=== PATIENT | male | born 1975 | race African-American/Black ===

== ENCOUNTER 2018-05-11 19:45 | Emergency (ER) | payer SELFPAY ==
--- OUTSIDE RECORDS SUMMARY | 2018-05-11 19:49 | XMS REPORT | Continuity of Care Document ---
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 Driver/Fellow. I have personally reviewed the images as Center DX well as the Resident's interpretation and agree with the findings. DATE: 04/10/2016 10:13 AM CDT Read by: Anibal Blackmon MD Resident: Anibal Blackmon MD Dictated Date/time: 04/10/16 10:49 Electronically Signed by: Jossue Kay MD 04/10/16 17:11 FINAL REPORT INDICATION: post op orif rt femur COMPARISON: CT knee without contrast dated 04/01/2016 at 1335 TECHNIQUE: AP and lateral radiographs of the knee Laterality: Right FINDINGS: Interim realignment and fixation of distal comminuted intracondylar femur fracture, with locking plate spanning the fracture site from mid body of femur, to the edge of the lateral epicondyl e. Also noted are several transcondylar screws fixating the fracture. Extensive comminution of the metadiaphysis remains with small fragment of posterior metadiaphyseal cortex displaced, with overall alignment of the fracture much improved. Moderate lipohemarthrosis noted posterior to patella IMPRESSION: Interim reduction and fixation of distal femur fracture with satisfactory alignment. Minimal residual displaced fragments Knee wo Knee wo EXAM: CT RIGHT KNEE WITHOUT CONTRAST 04/01 - [facility] contrast contrast w/3D /2015 - [facility] w/3D CT CT Center INDICATION: Right knee fracture Read by: James Kitchen MD Dictated Date/time: 04/01/16 15:24 Electronically Signed by: James Kitchen MD 04/01/16 15:30 FINAL REPORT TECHNIQUE: Noncontrast helical CT imaging of the right knee with multiplanar reformats. Additional 3-D volume rendered images were obtained on scanner workstation. DLP: 375 mGy*cm COMPARISON: Right knee CT 03/31/2016. FINDINGS: There is a comminuted bicondylar fracture of the distal femur which extends for a distance of 10.5 cm above the knee joint line. There is a nondisplaced sagittal fracture line dividing the medial and la teral femoral condyles with 4 mm of maximal step-off across the medial trochlea articular surface. The femoral condyles are otherwise intact. Extensive comminution is present throughout the metadiaphysi s with a 4 cm fragment of the posterior metadiaphyseal cortex that is displaced into the medullary cavity. The remainder of the metadiaphyseal bone fragments are mildly displaced. Soft tissue stranding surrounds the distal femur fracture. There is a moderate sized lipohemarthrosis. There is a 7 x 13 mm minimally displaced impaction fracture along the inferomedial margin of the patella (series 3 image 67). The proximal tibia and fibula are intact. IMPRESSION: 1. Unchanged appearance of comminuted bicondylar distal tibia fracture. 2. 7 x 13 mm minimally displaced impaction fracture at the inferomedial margin of the patella. CHEM PANEL BUN 5 mg/dL 7 - 04/01 [facility] /[address] [place] [address] CHEM PANEL Creatinine 0.67 mg/dL 0.50 - 04/01 [facility] Lvl 1.40 /2015 [facility] CHEM PANEL eGFR 141 04/01 Result Comment: The eGFR is calculated using the CKD-EPI formula. In most young, healthy individuals the eGFR will be >90 mL/ min/1.73m2. The eGFR declines with age. An eGFR of 60-89 may be normal in [facility] mL/min/1.7 /2015 some populations, particularly the elderly, for whom the CKD-EPI formula has not been extensively validated. Use of the eGFR is not recommended in the following populations: [address] Individuals with unstable creatinine concentrations, including patients and those with serious co-morbid conditions. Patients with extremes in muscle mass or diet. The data above are obtained from the National Kidney Disease Education Program (NKDEP) which additionally recommends that when the eGFR is used in patients with extremes of body mass index for purposes of drug dosing, the eGFR should be multiplied by the estimated BMI. CHEM PANEL Calcium Lvl 9.0 mg/dL 8.5 - 10.5 04/01 [facility] CHEM PANEL Chloride Lvl 107 meq/L 95 - 109 04/01 [facility] CHEM PANEL CO2 24 meq/L 24 - 32 04/01 [facility] CHEM PANEL AGAP 13.5 meq/L 10.0 - 04/01 20.0 [facility] CHEM PANEL Sodium Lvl 141 meq/L 135 - 145 04/01 [facility] CHEM PANEL Potassium Lvl 3.5 meq/L 3.5 - 5.1 04/01 2015 [facility] CHEM PANEL Glucose Lvl 99 mg/dL 70 - 99 04/01 2015 [facility] CHEM PANEL Magnesium Lvl 2.1 mg/dL 1.8 - 2.4 04/01 [facility] CHEM PANEL Phosphorus 3.2 mg/dL 2.5 - 4.5 04/01 [facility] HEMATOLOGY RBC 4.90 M/CMM 4.70 - 04/01 6.10 [facility] HEMATOLOGY WBC 10.9 K/CMM 3.7 - 10.4 04/01 [facility] HEMATOLOGY Hgb 13.3 g/dL 14.0 - 04/01 18.0 [facility] HEMATOLOGY Hct 40.2 % 42.0 - 04/01 54.0 [facility] HEMATOLOGY MCV 82.1 fL 80.0 - 04/01 94.0 [facility] HEMATOLOGY MCH 27.1 pg 27.0 - 04/01 31.0 [facility] HEMATOLOGY MCHC 33.1 g/dL 32.0 - 04/01 36.0 [facility] HEMATOLOGY Platelet 221 K/CMM 133 - 450 04/01 [facility] HEMATOLOGY RDW 15.5 % 11.5 - 04/01 14.5 [facility] HEMATOLOGY MPV 8.3 fL 7.4 - 10.4 04/01 2015 [facility] HEMATOLOGY Lymphocytes # 1.6 K/CMM 1.0 - 5.5 04/01 [facility] HEMATOLOGY Basophils 0.2 % 0.0 - 1.0 04/01 [facility] HEMATOLOGY Segs-Bands # 8.4 K/CMM 1.5 - 8.1 04/01 [facility] HEMATOLOGY Monocytes # 0.9 K/CMM 0.0 - 0.8 04/01 [facility] HEMATOLOGY Eosinophils # 0.1 K/CMM 0.0 - 0.5 04/01 2015 [facility] HEMATOLOGY Lymphocytes 14.5 % 20.0 - 04/01 [place] 40.0 [facility] HEMATOLOGY Monocytes 7.8 % 2.0 - 12.0 04/01 [facility] HEMATOLOGY Eosinophils 0.5 % 0.0 - 4.0 04/01 [facility] HEMATOLOGY Segs 77.0 % 45.0 - 04/01 [facility] 75.0 [facility] DRUG SCREEN UDS Note See Note 03/31 [facility] (03/31/16 4:05 PM) Center DRUG SCREEN U Phencyc Scr Negative Negative 03/31 [facility] *NA* Center (03/31/16 4:05 PM) DRUG SCREEN U Opiate Scr Positive Negative 03/31 [facility] *ABN* Center (03/31/16 4:05 PM) DRUG SCREEN U Cannab Scr Negative Negative 03/31 [facility] *NA* Center (03/31/16 4:05 PM) DRUG SCREEN U Benzodia Negative Negative 03/31 [facility] *NA* Center (03/31/16 4:05 PM) DRUG SCREEN U Cocaine Scr Negative Negative 03/31 [facility] *NA* Center (03/31/16 4:05 PM) DRUG SCREEN U Cheryl Scr Negative Negative 03/31 [facility] *NA* Center (03/31/16 4:05 PM) DRUG SCREEN U Amph Scr Negative Negative 03/31 [facility] *NA* Center (03/31/16 4:05 PM) URINE AND UA Bacteria None Seen None Seen 03/31 [facility] (03/31/16 4:05 PM) Center URINE AND UA RBC 21-50 /HPF 0 - 2 03/31 [facility] STOOL [facility] URINE AND UA WBC 0-2 /HPF None Seen 03/31 [facility] STOOL /HPF /2015 [facility] URINE AND UA Sq Epi Rare /LPF Few /LPF 03/31 [facility] URINE AND UA Mucus None Seen None Seen 03/31 [facility] (03/31/16 4:05 PM) [place] URINE AND UA Spec Grav 1.010 <=1.030 03/31 [facility] URINE AND UA pH 6.5 5.0 - 8.0 03/31 [facility]2015 [facility] URINE AND UA Turbidity Clear Clear 03/31 [facility] (03/31/16 4:05 PM) [place] URINE AND UA Color Yellow Yellow 03/31 [facility] *NA* [place] (03/31/16 4:05 PM) URINE AND UA 0.2 EU/dL 0.1 - 1.0 03/31 [facility] Urobilinogen /2015 [facility] URINE AND UA Nitrite Negative Negative 03/31 [facility] (03/31/16 4:05 PM) [place] URINE AND UA Blood Large Negative 03/31 [facility] *ABN* [place] (03/31/16 4:05 PM) URINE AND UA Ketones Negative Negative 03/31 [facility] *NA* [place] (03/31/16 4:05 PM) URINE AND UA Glucose Negative Negative 03/31 [facility] (03/31/16 4:05 PM) [place] URINE AND UA Bili Negative Negative 03/31 [facility] *NA* [place] (03/31/16 4:05 PM) URINE AND UA Protein Trace Negative 03/31 [facility] *ABN* [place] (03/31/16 4:05 PM) URINE AND UA Leuk Est Negative Negative 03/31 [facility] (03/31/16 4:05 PM) [place] Tibia Tibia fibula EXAM: XR LEFT TIBIA 2 VIEWS 03/31 - [facility] fibula series DX /2015 - Medical series DX This report was dictated by a Sulky Driver/Fellow. I have personally reviewed the images as Center well as the Resident's interpretation and agree with the findings. DATE: 03/31/20162038 hours Read by: José Luis Damon MD Resident: José Luis Damon MD Dictated Date/time: 03/31/16 20:51 Electronically Signed by: Flo Syed MD 03/31/16 22:25 FINAL REPORT INDICATION: Leg pain post trauma COMPARISON: None available TECHNIQUE: AP and lateral radiographs of the left tibia DISCUSSION: No acute fracture or malalignment is identified. No soft tissue abnormality is identified. IMPRESSION: No acute abnormality. Forearm 2 Forearm 2 EXAM: XR RIGHT FOREARM 2 VIEWS 03/31 - [facility] views DX views - [facility] This report was dictated by a Sulky Driver/Fellow. I have personally reviewed the images as Center well as the Resident's interpretation and agree with the findings. DATE: 03/31/2016 at 2044 hours Read by: José Luis Damon MD Resident: José Luis Damon MD Dictated Date/time: 03/31/16 20:47 Electronically Signed by: Flo Syed MD 03/31/16 21:06 FINAL REPORT INDICATION: Pain Post Trauma COMPARISON: Right wrist radiograph acquired earlier the same day TECHNIQUE: AP and lateral radiographs of the right forearm DISCUSSION: No acute fracture or malalignment is identified. There is a remote, healed midshaft fracture of the ulna with normal alignment. There is mild soft tissue swelling of the forearm. IMPRESSION: Soft tissue swelling without acute bony abnormality. Healed ulna fracture. BLOOD BANK ABO/Rh A POS 03/31 [facility] RESULTS /2015 [facility] BLOOD BANK Antibody Scrn Negative 03/31 [facility] RESULTS /2015 Medical (03/31/16 11:30 AM) [place] CHEM PANEL Total Protein 7.8 g/dL 6.4 - 8.4 03/31 /2015 [facility] CHEM PANEL Albumin Lvl 3.5 g/dL 3.5 - 5.0 03/31 2015 [facility] CHEM PANEL AST 40 unit/L 0 - 37 03/31 /2015 [facility] CHEM PANEL ALT 36 unit/L 0 - 65 03/31 /2015 [facility] CHEM PANEL Bili Total 0.6 mg/dL 0.2 - 1.3 03/31 /2015 [facility] CHEM PANEL Alk Phos 90 unit/L 39 - 136 03/31 /2015 [facility] CHEM PANEL eGFR 102 03/31 Result Comment: The eGFR is calculated using the CKD-EPI formula. In most young, healthy individuals the eGFR will be >90 mL/ min/1.73m2. The eGFR declines with age. An eGFR of 60-89 may be normal in [facility] mL/min/1.7 some populations, particularly the elderly, for whom the CKD-EPI formula has not been extensively validated. Use of the eGFR is not recommended in the following populations: [address] Individuals with unstable creatinine concentrations, including patients and those with serious co-morbid conditions. Patients with extremes in muscle mass or diet. The data above are obtained from the National Kidney Disease Education Program (NKDEP) which additionally recommends that when the eGFR is used in patients with extremes of body mass index for purposes of drug dosing, the eGFR should be multiplied by the estimated BMI. CHEM PANEL CO2 21 meq/L 24 - 32 03/[address] CHEM PANEL Potassium Lvl 3.5 meq/L 3.5 - 5.1 03/[address] CHEM PANEL Chloride Lvl 105 meq/L 95 - 109 03/[address] CHEM PANEL Calcium Lvl 9.0 mg/dL 8.5 - 10.5 03/[address] CHEM PANEL Creatinine 1.06 mg/dL 0.50 - 03/31 [facility] Lvl 1.40 [facility] CHEM PANEL Sodium Lvl 138 meq/L 135 - 145 03/[address] CHEM PANEL Glucose Lvl 129 mg/dL 70 - 99 03/[address] CHEM PANEL BUN 10 mg/dL 7 - 22 03/[address] CHEM PANEL A/G Ratio 0.8 0.7 - 1.6 03/[address] CHEM PANEL Globulin 4.3 g/dL 2.0 - 4.0 03/[address] CHEM PANEL B/C Ratio 9 6 - 25 03/[address] CHEM PANEL AGAP 15.5 meq/L 10.0 - 03/31 [facility] 20.0 [facility] CHEM PANEL Lactic Acid 1.4 mMol/L 0.5 - 2.2 03/31 [facility] HEMATOLOGY Eosinophils # 0.2 K/CMM 0.0 - 0.5 03/[address] HEMATOLOGY Basophils # 0.1 K/CMM 0.0 - 0.2 03/[address] HEMATOLOGY Segs-Bands # 6.6 K/CMM 1.5 - 8.1 03/[address] Center HEMATOLOGY Monocytes # 0.8 K/CMM 0.0 - 0.8 03/31 [facility] HEMATOLOGY Lymphocytes # 3.1 K/CMM 1.0 - 5.5 03/31 [facility] HEMATOLOGY Basophils 0.7 % 0.0 - 1.0 03/31 [facility] HEMATOLOGY Eosinophils 1.9 % 0.0 - 4.0 03/31 [facility] HEMATOLOGY Segs 61.6 % 45.0 - 03/31 [place] 75.0 [facility] HEMATOLOGY Monocytes 7.3 % 2.0 - 12.0 03/31 [facility] HEMATOLOGY Lymphocytes 28.5 % 20.0 - 03/31 40.0 [facility] HEMATOLOGY Platelet 260 K/CMM 133 - 450 03/31 [facility] HEMATOLOGY RDW 15.3 % 11.5 - 03/31 14.5 [facility] HEMATOLOGY MCHC 32.7 g/dL 32.0 - 03/31 36.0 [facility] HEMATOLOGY MPV 8.0 fL 7.4 - 10.4 03/31 [facility] HEMATOLOGY MCH 27.2 pg 27.0 - 03/31 31.0 [facility] HEMATOLOGY MCV 83.1 fL 80.0 - 03/31 94.0 [facility] HEMATOLOGY Hgb 13.9 g/dL 14.0 - 03/31 18.0 [facility] HEMATOLOGY RBC 5.11 M/CMM 4.70 - 03/31 6.10 [facility] HEMATOLOGY Hct 42.4 % 42.0 - 03/31 54.0 [facility] HEMATOLOGY WBC 10.7 K/CMM 3.7 - 10.4 03/31 [facility] HEMATOLOGY R-time Rapid 0.6 min 0.4 - 0.7 03/31 [facility] HEMATOLOGY Angle Rapid 83 degrees 64 - 80 03/31 [facility] HEMATOLOGY ACT (TEG) 105 s 86 - 118 03/31 [facility] HEMATOLOGY [place] 0.5 min 03/31 [facility] HEMATOLOGY K-time Rapid 0.8 min 0.6 - 2.3 03/31 [facility] HEMATOLOGY Estimated % 0.8 % 0.0 - 7.5 03/31 [facility] Lysis Rapid [facility] HEMATOLOGY Max Amplitude 80 mm 52 - 71 03/31 [facility] HEMATOLOGY G-value Rapid 20.5 K 5.0 - 11.6 03/31 [facility] d/sc [facility] Knee wo Knee wo EXAM: CT RIGHT KNEE WITHOUT CONTRAST 03/31 - [facility] contrast CT contrast CT /2015 - Medical This report was dictated by a Sulky Driver/Fellow. I have personally reviewed the images as Center well as the Resident's interpretation and agree with the findings. DATE: 03/31/2016 1436 PM CDT Read by: Debi Dalal MD Resident: Debi Dalal MD Dictated Date/time: 03/31/16 15:13 Electronically Signed by: Flo Syed MD 03/31/16 17:46 FINAL REPORT INDICATION: Fracture COMPARISON: Left knee radiograph dated 03/31/2016. TECHNIQUE: Volumetric CT acquisition of the left knee without contrast. Axial, sagittal and coronal reconstructions. IV contrast: None. DLP: 326.0 mGy-cm FINDINGS: There is a comminuted Y-shaped intra-articular fracture of the right femoral distal diaphysis with minimal posterior displacement of the lateral fragment. The fracture line exits the intercondylar notch . Separately, there is a comminuted fracture of the lateral condyle. There are multiple comminuted bone fragments in the fracture cleft. Tiny bone fragments are identified adjacent to the intercondylar fossa. No bone fragments are present in the medial or lateral femorotibial or patellofemoral joint spaces. There is no fracture of the patella, tibia, or fibula. There is mild soft tissue swelling. No subcutaneous emphysema is identified. A small to moderate lipohemarthrosis is present. No radiopaque foreign body is identified. IMPRESSION: IMPRESSION: 1. Comminuted, impacted Y-shaped intra-articular fracture of the right femoral distal diaphysis. 2. Lipohemarthrosis. Wrist Wrist ADDENDUM: 03/31 - [facility] complete DX complete DX - Medical Following is a correction to the previous report titles. Center The right wrist and left hand were imaged. Read by: Dennys Olson MD Dictated Date/time: 04/01/16 13:51 The right hand is reported separately in previous exam report on 2015 at 1136 hours. Electronically Signed by: Dennys Olson MD 04/01/16 14:07 FINAL REPORT Corrected reports are as follows: - - EXAM: XR RIGHT WRIST 4VIEWS Read by: Dennys Olson MD Dictated Date/time: 03/31/16 14:21 Electronically Signed by: Dennys Olson MD 03/31/16 14:27 FINAL REPORT DATE: 03/31/2016 1338 hours CDT INDICATION: Pain Post Trauma COMPARISON: None available TECHNIQUE: PA, lateral, navicular, and oblique radiographs of the right wrist FINDINGS: No fracture, periosteal reaction, or erosions identified. Cortical thickening at the ulna mid diaphysis is partially visualized presumably sequela of remote trauma. Suggest obtaining right forearm series for complete assessment. Joint alignment is normal. Soft tissues are unremarkable. IMPRESSION: No acute fractures of the right wrist identified. Partially visualized cortical thickening at the right ulna mid diaphysis compatible with sequela of remote trauma. EXAM: XR LEFT HAND 3 VIEWS DATE: 03/31/2016 1338 hours CDT INDICATION: Pain Post Trauma COMPARISON: None available TECHNIQUE: PA, lateral and oblique radiographs of the left hand FINDINGS: No fracture, periosteal reaction, or erosions identified. Chronic healed fracture deformity of the 5th metacarpal noted. Joint alignment is normal. Focal soft tissue swelling adjacent to the base of the 1st metacarpal on the radial side of the wrist measuring 2.3 x 1.4 cm noted suggesting presence of a ganglion cyst. IMPRESSION: No acute injuries identified. Chronic healed fracture of the 5th left metacarpal. Focal soft tissue swelling on the radial side of the left wrist at the level of the carpal bones suggesting presence of a ganglion cyst. EXAM: XR RIGHT HAND 3 VIEWS EXAM: XR RIGHT WRIST 3 VIEWS DATE: 03/31/2016 1:36 PM CDT INDICATION: Pain Post Trauma COMPARISON: None available TECHNIQUE: PA, lateral and oblique radiographs of the right wrist PA, lateral and oblique radiographs of the right hand FINDINGS: No fracture, periosteal reaction, or erosions identified. Cortical thickening at the ulna mid diaphysis is partially visualized presumably sequela of remote trauma. Suggest obtaining right forearm series for complete assessment. Joint alignment is normal. Soft tissues are unremarkable. IMPRESSION: No acute fractures identified. Partially visualized cortical thickening at the ulna mid diaphysis presumably sequela of remote trauma. Consider obtaining right forearm series for assessment if symptomatic. Hand 3 Hand 3 views ADDENDUM: 03/31 - [facility] views DX - Medical Following is a correction to the previous report titles. Center The right wrist and left hand were imaged. Read by: Dennys Olson MD Dictated Date/time: 04/01/16 13:51 The right hand is reported separately in previous exam report on 2015 at 1136 hours. Electronically Signed by: Dennys Olson MD 04/01/16 14:07 FINAL REPORT Corrected reports are as follows: - - EXAM: XR RIGHT WRIST 4VIEWS Read by: Dennys Olson MD Dictated Date/time: 03/31/16 14:21 Electronically Signed by: Dennys Olson MD 03/31/16 14:27 FINAL REPORT DATE: 03/31/2016 1338 hours CDT INDICATION: Pain Post Trauma COMPARISON: None available TECHNIQUE: PA, lateral, navicular, and oblique radiographs of the right wrist FINDINGS: No fracture, periosteal reaction, or erosions identified. Cortical thickening at the ulna mid diaphysis is partially visualized presumably sequela of remote trauma. Suggest obtaining right forearm series for complete assessment. Joint alignment is normal. Soft tissues are unremarkable. IMPRESSION: No acute fractures of the right wrist identified. Partially visualized cortical thickening at the right ulna mid diaphysis compatible with sequela of remote trauma. EXAM: XR LEFT HAND 3 VIEWS DATE: 03/31/2016 1338 hours CDT INDICATION: Pain Post Trauma COMPARISON: None available TECHNIQUE: PA, lateral and oblique radiographs of the left hand FINDINGS: No fracture, periosteal reaction, or erosions identified. Chronic healed fracture deformity of the 5th metacarpal noted. Joint alignment is normal. Focal soft tissue swelling adjacent to the base of the 1st metacarpal on the radial side of the wrist measuring 2.3 x 1.4 cm noted suggesting presence of a ganglion cyst. IMPRESSION: No acute injuries identified. Chronic healed fracture of the 5th left metacarpal. Focal soft tissue swelling on the radial side of the left wrist at the level of the carpal bones suggesting presence of a ganglion cyst. EXAM: XR RIGHT HAND 3 VIEWS EXAM: XR RIGHT WRIST 3 VIEWS DATE: 03/31/2016 1:36 PM CDT INDICATION: Pain Post Trauma COMPARISON: None available TECHNIQUE: PA, lateral and oblique radiographs of the right wrist PA, lateral and oblique radiographs of the right hand FINDINGS: No fracture, periosteal reaction, or erosions identified. Cortical thickening at the ulna mid diaphysis is partially visualized presumably sequela of remote trauma. Suggest obtaining right forearm series for complete assessment. Joint alignment is normal. Soft tissues are unremarkable. IMPRESSION: No acute fractures identified. Partially visualized cortical thickening at the ulna mid diaphysis presumably sequela of remote trauma. Consider obtaining right forearm series for assessment if symptomatic. Brain wo Brain wo EXAM: CT BRAIN WITHOUT CONTRAST 03/31 [facility] contrast CT contrast CT /2016 [facility] Center DATE: 03/31/2016 Read by: Sanjana Carnes Dictated Date/time: 03/31/16 12:32 Electronically Signed by: Sanjana Carnes 03/31/16 12:33 FINAL REPORT INDICATION: Pain Post Trauma COMPARISON:None available TECHNIQUE: Routine axial CT images of the brain were obtained. DLP: 1742 mGy-cm FINDINGS: Non-contrast images of the head demonstrate no edema, hemorrhage, mass lesion or other acute intracranial abnormality. The brain has normal attenuation and chang-white matter distinction. The ventricles are normal. The basal cisterns and sulci are normal in size. There is no chronic abnormality. The paranasal sinuses, orbits and mastoids are unremarkable. IMPRESSION: Normal CT of the brain without contrast. Spine Spine EXAM: CT CERVICAL SPINE WITHOUT CONTRAST 03/31 [facility] cervical wo cervical wo /2015 - [facility] contrast CT contrast CT Center DATE: 03/31/2016 11:31 AM CDT Read by: Rory Carrasco MD Dictated Date/time: 03/31/16 12:52 Electronically Signed by: Rory Carrasco MD 03/31/16 12:53 FINAL REPORT INDICATION: Neck pain following trauma COMPARISON: None TECHNIQUE: Volumetric CT acquisition of the cervical spine without contrast. Axial, sagittal and coronal reconstructions. IV contrast: None. DLP: 495 mGy-cm FINDINGS: The spine is imaged from the skull base to the level of T1. No acute fracture or malalignment is identified. No soft tissue abnormality is identified. IMPRESSION: No acute abnormality of the cervical spine. Chest/Abdom Chest/Abdomen EXAM: CT CHEST WITH CONTRAST 06/28 [facility] en/Pelvis w /Pelvis w IV /2015 - Medical IV contrast contrast CT EXAM: CT ABDOMEN AND PELVIS WITH CONTRAST Center CT Read by: Rory Carrasco MD Dictated Date/time: 03/31/16 12:50 DATE: 03/31/2016 11:31 AM CDT Electronically Signed by: Rory Carrasco MD 03/31/16 12:51 FINAL REPORT INDICATION: Pain Post Trauma COMPARISON: None. TECHNIQUE: Volumetric CT acquisition of the chest, abdomen and pelvis following intravenous administration of contrast. Delayed imaging was then performed through the abdomen and pelvis, using a radiati on reduction technique. Axial, coronal and sagittal reformats, and MIP images of the aorta. IV contrast: 99 mL of Visipaque 320 Oral contrast: None. DLP: 3483 mGy-cm FINDINGS: Lines and Tubes: None. Lower Neck: Visible portions unremarkable. Thoracic Aorta and Mediastinum: No mediastinal hematoma or thoracic aortic injury. Lungs and Pleura: Lungs are clear. No contusions. No pleural fluid or pneumothorax. Hepatobiliary: Normal. Gallbladder: No injury. Spleen: Normal. Pancreas: Normal. Adrenals: Normal. Kidneys: Normal. Ureters and Bladder: No injury. Reproductive Organs: No injury. Gastrointestinal Tract: No injury. Peritoneum and Retroperitoneum: No fluid collections or free air. Abdominal/Pelvic Vasculature: No vascular injury. Lymphadenopathy: None. Spine/Bones: No acute abnormality of the spine. No other bony injury. Soft Tissues: Seatbelt contusion in the subcutaneous fat of the lower abdominal wall at the level of the iliac crests more pronounced on the left than on the right side. IMPRESSION: 1. Seatbelt contusion over the lower anterior abdominal wall. 2. No other acute thoracic, abdominal, or pelvic injury. RECOMMENDATIONS: None. Ankle 3 Ankle 3 views EXAM: XR RIGHT HIP 2 VIEWS AND AP PELVIS 03/31 [facility] views DX DX /2015 - Medical EXAM: XR RIGHT FEMUR 2 VIEWS Center EXAM: XR RIGHT KNEE 3 VIEWS Read by: Rory Carrasco MD Dictated Date/time: 03/31/16 12:55 EXAM: XR RIGHT TIBIA-FIBULA 2 VIEWS Electronically Signed by: Rory Carrasco MD 03/31/16 12:59 FINAL REPORT EXAM: XR RIGHT ANKLE 3 VIEWS EXAM: XR RIGHT FOOT 3 VIEWS DATE: 03/31/2016 11:32 AM CDT INDICATION: Pain and swelling COMPARISON: None TECHNIQUE: AP and lateral views of the right femur, AP, lateral and oblique views of the right knee, AP and lateral views of the right tibia-fibula , AP, lateral and oblique radiographs of the right ankle. FINDINGS: Femur: Comminuted distal metadiaphyseal fracture of the right femur with a sagittal fracture line extending into the intercondylar notch of the distal femur. Each condyle is a separate fragment. Knee: Distal femur fracture as described above. Patella is intact. No excessive knee joint fluid is identified. Tibia-fibula: No acute fracture or malalignment is identified. Ankle: No acute fracture or malalignment is identified. The ankle mortise is congruent. Soft tissues: Soft tissue swelling is seen in the prepatellar region. IMPRESSION: Comminuted intra-articular right distal femur fracture Femur Femur series EXAM: XR RIGHT HIP 2 VIEWS AND AP PELVIS 03/31 - [place] series DX DX - Medical EXAM: XR RIGHT FEMUR 2 VIEWS Center EXAM: XR RIGHT KNEE 3 VIEWS Read by: Rory Carrasco MD Dictated Date/time: 03/31/16 12:55 EXAM: XR RIGHT TIBIA-FIBULA 2 VIEWS Electronically Signed by: Rory Carrasco MD 03/31/16 12:59 FINAL REPORT EXAM: XR RIGHT ANKLE 3 VIEWS EXAM: XR RIGHT FOOT 3 VIEWS DATE: 03/31/2016 11:32 AM CDT INDICATION: Pain and swelling COMPARISON: None TECHNIQUE: AP and lateral views of the right femur, AP, lateral and oblique views of the right knee, AP and lateral views of the right tibia-fibula , AP, lateral and oblique radiographs of the right ankle. FINDINGS: Femur: Comminuted distal metadiaphyseal fracture of the right femur with a sagittal fracture line extending into the intercondylar notch of the distal femur. Each condyle is a separate fragment. Knee: Distal femur fracture as described above. Patella is intact. No excessive knee joint fluid is identified. Tibia-fibula: No acute fracture or malalignment is identified. Ankle: No acute fracture or malalignment is identified. The ankle mortise is congruent. Soft tissues: Soft tissue swelling is seen in the prepatellar region. IMPRESSION: Comminuted intra-articular right distal femur fracture Hand 3 Hand 3 views EXAM: XR RIGHT HAND 3 VIEWS 03/31 - [place] views DX DX - Medical This report was dictated by a Sulky Driver/Fellow. I have personally reviewed the images as Center well as the Resident's interpretation and agree with the findings. DATE: 03/31/2016 1136 hours Read by: Debi Dalal MD Resident: Debi Dalal MD Dictated Date/time: 03/31/16 13:02 Electronically Signed by: Rory Carrasco MD 03/31/16 14:42 FINAL REPORT INDICATION: Pain and swelling COMPARISON: None. TECHNIQUE: PA, lateral and oblique radiographs of the right hand FINDINGS: No acute fracture or malalignment is identified. Mild soft tissue swelling. IMPRESSION: 1. No acute fracture or malalignment. 2. Mild soft tissue swelling. Knee series Knee series 3 EXAM: XR RIGHT HIP 2 VIEWS AND AP PELVIS 03/31 - [place] 3 views DX views DX /2015 - Medical EXAM: XR RIGHT FEMUR 2 VIEWS Center EXAM: XR RIGHT KNEE 3 VIEWS Read by: Rory Carrasco MD Dictated Date/time: 03/31/16 12:55 EXAM: XR RIGHT TIBIA-FIBULA 2 VIEWS Electronically Signed by: Rory Carrasco MD 03/31/16 12:59 FINAL REPORT EXAM: XR RIGHT ANKLE 3 VIEWS EXAM: XR RIGHT FOOT 3 VIEWS DATE: 03/31/2016 11:32 AM CDT INDICATION: Pain and swelling COMPARISON: None TECHNIQUE: AP and lateral views of the right femur, AP, lateral and oblique views of the right knee, AP and lateral views of the right tibia-fibula , AP, lateral and oblique radiographs of the right ankle. FINDINGS: Femur: Comminuted distal metadiaphyseal fracture of the right femur with a sagittal fracture line extending into the intercondylar notch of the distal femur. Each condyle is a separate fragment. Knee: Distal femur fracture as described above. Patella is intact. No excessive knee joint fluid is identified. Tibia-fibula: No acute fracture or malalignment is identified. Ankle: No acute fracture or malalignment is identified. The ankle mortise is congruent. Soft tissues: Soft tissue swelling is seen in the prepatellar region. IMPRESSION: Comminuted intra-articular right distal femur fracture Tibia Tibia fibula EXAM: XR RIGHT HIP 2 VIEWS AND AP PELVIS 03/31 - [place] fibula series DX /2015 - Medical series DX EXAM: XR RIGHT FEMUR 2 VIEWS Center EXAM: XR RIGHT KNEE 3 VIEWS Read by: Rory Carrasco MD Dictated Date/time: 03/31/16 12:55 EXAM: XR RIGHT TIBIA-FIBULA 2 VIEWS Electronically Signed by: Rory Carrasco MD 03/31/16 12:59 FINAL REPORT EXAM: XR RIGHT ANKLE 3 VIEWS EXAM: XR RIGHT FOOT 3 VIEWS DATE: 03/31/2016 11:32 AM CDT INDICATION: Pain and swelling COMPARISON: None TECHNIQUE: AP and lateral views of the right femur, AP, lateral and oblique views of the right knee, AP and lateral views of the right tibia-fibula , AP, lateral and oblique radiographs of the right ankle. FINDINGS: Femur: Comminuted distal metadiaphyseal fracture of the right femur with a sagittal fracture line extending into the intercondylar notch of the distal femur. Each condyle is a separate fragment. Knee: Distal femur fracture as described above. Patella is intact. No excessive knee joint fluid is identified. Tibia-fibula: No acute fracture or malalignment is identified. Ankle: No acute fracture or malalignment is identified. The ankle mortise is congruent. Soft tissues: Soft tissue swelling is seen in the prepatellar region. IMPRESSION: Comminuted intra-articular right distal femur fracture Chest 1view Chest 1view EXAM: XR CHEST 1 VIEW 03/31 - [facility] DX /2015 - Medical This report was dictated by a Sulky Driver/Fellow. I have personally reviewed the images as Center well as the Resident's interpretation and agree with the findings. DATE: 03/31/2016 1118 AM CDT Read by: Debi Dalal MD Resident: Debi Dalal MD Dictated Date/time: 03/31/16 11:42 Electronically Signed by: Rory Carrasco MD 03/31/16 14:54 FINAL REPORT INDICATION: Pain Post Trauma COMPARISON: None. TECHNIQUE: AP chest FINDINGS: Lines and tubes: None. Lungs and pleura: There are low lung volumes and vascular crowding. No pleural effusion or pneumothorax is identified. Heart and mediastinum: The heart size is normal for technique. The mediastinal contours are normal. Bones: No acute bony abnormality is identified. IMPRESSION: No acute cardiopulmonary abnormality. Pelvis AP Pelvis AP DX EXAM: XR PELVIS 1 VIEW 03/31 - [facility] DX /2015 - Medical This report was dictated by a Sulky Driver/Fellow. I have personally reviewed the images as Center well as the Resident's interpretation and agree with the findings. DATE: 03/31/2016 1118 hours AM CDT Read by: Debi Dalal MD Resident: Debi Dalal MD Dictated Date/time: 03/31/16 11:44 Electronically Signed by: Rory Carrasco MD 03/31/16 14:42 FINAL REPORT INDICATION: Pain Post Trauma COMPARISON: None. TECHNIQUE: A single AP supine radiograph of the pelvis FINDINGS: No acute fracture or malalignment is identified. The soft tissues are unremarkable. IMPRESSION: No bony abnormality. Vital Signs Vital Sign Value Date Comments Source Systolic (mm Hg) 122 04/11/2016 [facility] Diastolic (mm Hg) 81 04/11/2016 [facility] Heart Rate 86 04/11/2016 [facility] Respitory Rate 18 04/11/2016 [facility] Temperature Oral (F) 98.6 F 04/11/2016 [facility] Systolic (mm Hg) 130 04/11/2016 [facility] Diastolic (mm Hg) 82 04/11/2016 [facility] Heart Rate 115 04/11/2016 [facility] Respitory Rate 18 04/11/2016 [facility] Temperature Oral (F) 98.6 F 04/11/2016 [facility] Systolic (mm Hg) 142 04/11/2016 [facility] Diastolic (mm Hg) 87 04/11/2016 [facility] Respitory Rate 18 04/11/2016 [facility] Heart Rate 72 04/11/2016 [facility] Temperature Oral (F) 98 F 04/11/2016 [facility] BMI Calculated 38.1 04/10/2016 [facility] Weight 120.455 04/10/2016 [facility] Height 177.8 cm 04/10/2016 [facility] BMI Calculated 41.14 04/10/2016 [facility] Weight 122.727 04/10/2016 [facility] Height 172.72 cm 04/09/2016 [facility] Respitory Rate 20 04/03/2016 [facility] Systolic (mm Hg) 128 04/03/2016 [facility] Diastolic (mm Hg) 88 04/03/2016 [facility] Heart Rate 101 04/03/2016 [facility] Temperature Oral (F) 98.6 F 04/03/2016 [facility] Respitory Rate 20 04/03/2016 [facility] Heart Rate 88 04/03/2016 [facility] Temperature Oral (F) 98.6 F 04/03/2016 [facility] Systolic (mm Hg) 122 04/03/2016 [facility] Diastolic (mm Hg) 82 04/03/2016 [facility] Respitory Rate 18 04/03/2016 [facility] Heart Rate 88 04/03/2016 [facility] Temperature Oral (F) 98.1 F 04/03/2016 [facility] Systolic (mm Hg) 119 04/03/2016 [facility] Diastolic (mm Hg) 76 04/03/2016 [facility] BMI Calculated 37.38 04/01/2016 [facility] Weight 118.182 04/01/2016 [facility] Height 177.8 cm 04/01/2016 [facility] BMI Calculated 37.38 04/01/2016 [facility] Weight 118.182 04/01/2016 [facility] Height 177.8 cm 04/01/2016 [facility] Encounters Location Location Encounter Encounter Reason Attending ADM DC Status Source Details Type Number For Provider Date Date Visit [facility] [id number] Luz Maria 03/31 04/03 [facility] Serge /2015 [facility] [id number] Cristobal Sheets 04/10 04/11 [facility] /2015 [facility] Procedures Procedure Code Date Perfomer Comments Source Application of [id number] [facility] external fixator Medical system Center Arm repair [id number] [facility] Knee arthroplasty [id number] [facility]
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
[2018-05-11] MEDS ORDERED: ONDANSETRON 4 MG/2 ML VIAL ONE (20:03)
[2018-05-11] MEDS ORDERED: NA CHLORIDE 0.9% 2,000 ML ONE (20:03)
[2018-05-11 20:08] LABS: Absolute Lymphocytes (CBC) 1.9 K/uL (0.7-4.9); Absolute Monocytes 0.7 K/uL (0.1-1.3); Absolute Neutrophil 4.9 K/uL (1.8-8.0); Basophils % 0.7 % (0-1.3); Eosinophils % 1.6 % (0-4.4); Hematocrit 45.4 % (39.6-49.0); Lymphocytes % 24.5 % (15.3-44.8); MCH 28.4 pg (27.0-35.0); MPV 8.5 fL (7.6-11.3); Monocytes % 9.2 % (3.3-12.3); RBC Red Blood Cell Count 5.28 M/uL (4.33-5.43)
[2018-05-11 20:19] LABS: BUN Blood Urea Nitrogen 6 mg/dL (7-18); Bicarbonate 32 mmol/L (21-32); Glucose Level 100 mg/dL (74-106); Potassium 3.8 mmol/L (3.5-5.1); Sodium Level 142 mmol/L (136-145)
--- NOTE | 2018-05-11 21:03 | ER ---
Nurse's Notes [facility] Name: Jakob Diaz Age: 42 yrs Sex: Male : 1975 Arrival Date: 05/11/2018 Time: 19:45 Bed 7 Private MD: Diagnosis: Drug abuse Presentation: 05/11 19:47 Presenting complaint: EMS states: pt c/o abd cramping X2 hours [employer]. pt in [facility] [employer] ak1 custody. pt c/o nausea. pt admits to synthetic use 1day ago last use, been using for over a month. Transition of care: police custody. Onset of symptoms was May 11, 2018. Risk Assessment: Do you want to hurt yourself or someone else? Patient reports no desire to harm self or others. Initial Sepsis Screen: Does the patient meet any 2 criteria? No. Patient's initial sepsis screen is negative. Does the patient have a suspected source of infection? No. Patient's initial sepsis screen is negative. Care prior to arrival: None. 19:47 Method Of Arrival: EMS: [facility] ak1 19:47 Acuity: IRVING 3 ak1 Triage Assessment: 19:50 General: Appears in no apparent distress. Behavior is cooperative. Pain: Complains of ak1 pain in abdomen. EENT: No signs and/or symptoms were reported regarding the EENT system. Neuro: No deficits noted. Cardiovascular: No deficits noted. Respiratory: No deficits noted. GI: Reports cramping, nausea. : No signs and/or symptoms were reported regarding the genitourinary system. Derm: No signs and/or symptoms reported regarding the dermatologic system. Musculoskeletal: No signs and/or symptoms reported regarding the musculoskeletal system. Historical: - Allergies: 19:50 No Known Allergies; ak1 - Home Meds: 19:50 None [Active]; ak1 - PMHx: 19:50 Hypertension; ak1 - PSHx: 19:50 right leg hardware; ak1 - Immunization history:: Adult Immunizations unknown. - Social history:: Smoking status: Patient/guardian denies using tobacco, Patient uses street drugs, synthetic marijuana. - Ebola Screening: : No symptoms or risks identified at this time. Screenin:52 Abuse screen: Denies threats or abuse. Denies injuries from another. Nutritional ak1 screening: No deficits noted. Tuberculosis screening: No symptoms or risk factors identified. Fall Risk None identified. Assessment: 19:59 General: Appears in no apparent distress. uncomfortable, Behavior is cooperative, bs1 appropriate for age, anxious. Pain: Complains of pain in abdomen, right upper/lower abdomen Pain does not radiate. Neuro: Level of Consciousness is awake, alert, obeys commands, Oriented to person, place, time, situation, Appropriate for age. Cardiovascular: Reports chest pain, Denies shortness of breath, Heart tones S1 S2 present Capillary refill < 3 seconds Patient's skin is warm and dry. Respiratory: Airway is patent Trachea midline Respiratory effort is even, unlabored, Respiratory pattern is regular, symmetrical, Breath sounds are clear bilaterally. GI: Abdomen is round non-distended, Bowel sounds present X 4 quads. Abdomen is tender to palpation in right upper quadrant and right lower quadrant Reports lower abdominal pain, upper abdominal pain, cramping, nausea, vomiting, Patient currently denies bloody stool, diarrhea. : No signs and/or symptoms were reported regarding the genitourinary system. EENT: No signs and/or symptoms were reported regarding the EENT system. Derm: Skin is intact. Musculoskeletal: Circulation, motion, and sensation intact. Capillary refill < 3 seconds, Range of motion: intact in all extremities. 21:29 Reassessment: Patient appears in no apparent distress at this time. No changes from ak1 previously documented assessment. Patient is alert, oriented x 3, equal unlabored respirations, skin warm/dry/pink. pt discharged back into [facility]'s custody. . Vital Signs: 19:46 BP 153 / 103; Pulse 51; Resp 18; Temp 97.7(O); Pulse Ox 100% on R/A; Weight 63.5 kg ak1 (R); Height 5 ft. 10 in. (177.80 cm) (R); Pain 6/10; 20:06 BP 128 / 83; Pulse 50; Resp 16; Temp 97.6; Pulse Ox 99% on R/A; Pain 6/10; ak1 20:48 BP 147 / 82; Pulse 55; Resp 16; Pulse Ox 100% on R/A; Pain 3/10; ak1 21:31 BP 145 / 88; Pulse 54; Resp 16; Pulse Ox 100% on R/A; Pain 0/10; ak1 19:46 Body Mass Index 20.09 (63.50 kg, 177.80 cm) ak1 ED Course: 19:45 Patient arrived in ED. ak1 19:46 Arm band placed on Patient placed in an exam room, on a stretcher, on surveillance monitor, ak1 on pulse oximetry. 19:48 Kaleb Lancaster PA is PHCP. jr8 19:48 Talha Dunaway MD is Attending Physician. jr8 19:50 Triage completed. ak1 19:50 Inserted saline lock: 20 gauge in left antecubital area, using aseptic technique. Blood bs1 collected. by me. Flushed IV with 10cc NS. 19:52 Patient has correct armband on for positive identification. Bed in low position. Call ak1 light in reach. Side rails up X2. personnel monitor on. Pulse ox on. NIBP on. [facility] Registered Nurse at bedside. 19:57 Amanda Dahl, RN is Primary Nurse. ak1 21:07 No provider procedures requiring assistance completed. ak1 21:33 IV discontinued, intact, bleeding controlled, No redness/swelling at site. Pressure ak1 dressing applied. Administered Medications: 20:07 Drug: NS 0.9% 1000 ml Route: IV; Rate: 1000 ml; Site: left antecubital; ak1 21:39 Follow up: IV Status: Completed infusion ak1 20:07 Drug: NS 0.9% 1000 ml Route: IV; Rate: 1000 ml; Site: left antecubital; ak1 20:51 Follow up: IV Status: Completed infusion ak1 20:07 Drug: Zofran 4 mg Route: IVP; Site: left antecubital; ak1 20:51 Follow up: Response: No adverse reaction; Nausea is decreased ak1 Outcome: 21:02 Discharge ordered by . jr8 21:33 Discharged to Law Enforcement ak1 21:33 Condition: improved 21:33 Discharge instructions given to patient, police, Instructed on discharge instructions, follow up and referral plans. 21:38 Patient left the ED. ak1 Signatures: Kaleb Lancaster PA PA jr8 Amanda Dahl, RN RN ak1 Leslie Erwin RN RN bs1
--- NOTE | 2018-05-11 21:03 | EDPHYS ---
Physician Documentation [facility] Name: Jakob Diaz Age: 42 yrs Sex: Male : 1975 Arrival Date: 05/11/2018 Time: 19:45 Bed 7 Private MD: ED Physician Talha Dunaway HPI: 05/11 20:27 This 42 yrs old Black Male presents to ER via EMS with complaints of Abdominal Cramping.jr8 20:27 Patient stated that he has been using synthetic marajuana for the past month. Stated jr8 that he has not had any in 24 hours and is trying to get off of it. Now has abdominal cramping, nausea, headache. Patient currently in custody. Onset: The symptoms/episode began/occurred acutely, today. Severity of symptoms: At their worst the symptoms were moderate in the emergency department the symptoms are unchanged. The patient has not experienced similar symptoms in the past. The patient has not recently seen a physician. Historical: - Allergies: 19:50 No Known Allergies; ak1 - Home Meds: 19:50 None [Active]; ak1 - PMHx: 19:50 Hypertension; ak1 - PSHx: 19:50 right leg hardware; ak1 - Immunization history:: Adult Immunizations unknown. - Social history:: Smoking status: Patient/guardian denies using tobacco, Patient uses street drugs, synthetic marijuana. - Ebola Screening: : No symptoms or risks identified at this time. ROS: 20:27 Eyes: Negative for injury, pain, redness, and discharge, ENT: Negative for injury, jr8 pain, and discharge, Neck: Negative for injury, pain, and swelling, Cardiovascular: Negative for chest pain, palpitations, and edema, Respiratory: Negative for shortness of breath, cough, wheezing, and pleuritic chest pain, Back: Negative for injury and pain, MS/Extremity: Negative for injury and deformity, Skin: Negative for injury, rash, and discoloration. 20:27 Abdomen/GI: Positive for abdominal pain, abdominal cramps, Negative for vomiting, diarrhea, abdominal distension, anorexia, dysphagia, hematemesis, black/tarry stool, rectal pain, rectal bleeding, bowel incontinence, flatulence. Exam: 20:31 Eyes: Pupils equal round and reactive to light, extra-ocular motions intact. Lids and jr8 lashes normal. Conjunctiva and sclera are non-icteric and not injected. Cornea within normal limits. Periorbital areas with no swelling, redness, or edema. ENT: Nares patent. No nasal discharge, no septal abnormalities noted. Tympanic membranes are normal and external auditory canals are clear. Oropharynx with no redness, swelling, or masses, exudates, or evidence of obstruction, uvula midline. Mucous membranes moist. Neck: Trachea midline, no thyromegaly or masses palpated, and no cervical lymphadenopathy. Supple, full range of motion without nuchal rigidity, or vertebral point tenderness. No Meningismus. Cardiovascular: Regular rate and rhythm with a normal S1 and S2. No gallops, murmurs, or rubs. Normal PMI, no JVD. No pulse deficits. Respiratory: Lungs have equal breath sounds bilaterally, clear to auscultation and percussion. No rales, rhonchi or wheezes noted. No increased work of breathing, no retractions or nasal flaring. Back: No spinal tenderness. No costovertebral tenderness. Full range of motion. Skin: Warm, dry with normal turgor. Normal color with no rashes, no lesions, and no evidence of cellulitis. MS/ Extremity: Pulses equal, no cyanosis. Neurovascular intact. Full, normal range of motion. Neuro: Awake and alert, GCS 15, oriented to person, place, time, and situation. Cranial nerves II-XII grossly intact. Motor strength 5/5 in all extremities. Sensory grossly intact. Cerebellar exam normal. Normal gait. 20:31 Abdomen/GI: Inspection: abdomen appears normal, Bowel sounds: active, all quadrants, Palpation: soft, in all quadrants, mild abdominal tenderness, in the abdomen diffusely, mass, is not appreciated, rebound tenderness, is not appreciated, voluntary guarding, is not appreciated, involuntary guarding, is not appreciated, no appreciated organomegaly, Indicators: McBurney's point is not tender, Salomon's sign is negative, Rovsing's sign is negative, Liver: no appreciated palpable abnormalities, tenderness. Vital Signs: 19:46 BP 153 / 103; Pulse 51; Resp 18; Temp 97.7(O); Pulse Ox 100% on R/A; Weight 63.5 kg ak1 (R); Height 5 ft. 10 in. (177.80 cm) (R); Pain 6/10; 20:06 BP 128 / 83; Pulse 50; Resp 16; Temp 97.6; Pulse Ox 99% on R/A; Pain 6/10; ak1 20:48 BP 147 / 82; Pulse 55; Resp 16; Pulse Ox 100% on R/A; Pain 3/10; ak1 21:31 BP 145 / 88; Pulse 54; Resp 16; Pulse Ox 100% on R/A; Pain 0/10; ak1 19:46 Body Mass Index 20.09 (63.50 kg, 177.80 cm) ak1 MDM: 19:48 Patient medically screened. jr8 20:31 Data reviewed: vital signs, nurses notes, lab test result(s), and as a result, I will [facility] discharge patient. Data interpreted: Pulse oximetry: on room air is 99 %. Interpretation: normal. Counseling: I had a detailed discussion with the patient and/or guardian regarding: the historical points, exam findings, and any diagnostic results supporting the discharge/admit diagnosis, lab results, the need for outpatient follow up, a family practitioner, to return to the emergency department if symptoms worsen or persist or if there are any questions or concerns that arise at home. 21:01 Response to treatment: the patient's symptoms have markedly improved after treatment, jr8 patient is well hydrated. 05/11 19:48 Order name: CBC with Diff; Complete Time: 20:26 8 05/11 19:48 Order name: Basic Metabolic Panel; Complete Time: 20:26 8 05/11 19:48 Order name: IV; Complete Time: 20:01 [facility] Administered Medications: 20:07 Drug: NS 0.9% 1000 ml Route: IV; Rate: 1000 ml; Site: left antecubital; ak1 21:39 Follow up: IV Status: Completed infusion ak1 20:07 Drug: NS 0.9% 1000 ml Route: IV; Rate: 1000 ml; Site: left antecubital; ak1 20:51 Follow up: IV Status: Completed infusion ak1 20:07 Drug: Zofran 4 mg Route: IVP; Site: left antecubital; ak1 20:51 Follow up: Response: No adverse reaction; Nausea is decreased ak1 Disposition: 05/12 03:06 Co-signature as Attending Physician, Talha Dunaway MD. Disposition: 08/08/18 21:02 Discharged to Law Enforcement. Impression: Drug abuse . - Condition is Stable. - Discharge Instructions: Drug Overdose. - Medication Reconciliation Form, Thank You Letter, Antibiotic Education, Prescription Opioid Use form. - Follow up: Private Physician; When: As needed; Reason: If symptoms return, Recheck today's complaints, Continuance of care, Re-evaluation by your physician. - Problem is new. - Symptoms have improved. Signatures: Dispatcher [employer] EDMS Kaleb Lancaster PA PA jr8 Amanda Dahl RN RN ak1 Talha Dunaway MD MD gs Corrections: (The following items were deleted from the chart) 05/11 21:38 21:02 05/11/2018 21:02 Discharged to Law Enforcement. Impression: Drug abuse . ak1 Condition is Stable. Forms are Medication Reconciliation Form, Thank You Letter, Antibiotic Education, Prescription Opioid Use. Follow up: Private Physician; When: As needed; Reason: If symptoms return, Recheck today's complaints, Continuance of care, Re-evaluation by your physician. Problem is new. Symptoms have improved. jr8
== END 2018-05-11 21:38 ==
LOC: ER 19:45
DX: F12.10 Cannabis abuse, uncomplicated (principal); I10 Essential (primary) hypertension
CPT/HCPCS: 36415; 80048; 85025; 96361; 96374; 99284; J2405; J7030